=== PATIENT | female | born 2000 | race Caucasian/White ===

== ENCOUNTER 2023-12-26 08:43 | Outpatient (CLI) | payer BC, SELFPAY ==
[2023-12-26 19:08] LABS: Hematocrit 41.1 % (37.0-47.0); Mean Corpuscular HGB Conc 31.6 g/dl (32-36); Mean Corpuscular Hemoglobin 30.9 pg (26-34); Mean Corpuscular Volume 97.6 fl (80-100); Mean Platelet Volume 10.6 fl (7.4-10.4); Platelet Count Result 236 k/mm3 (150-375); Red Blood Count 4.21 M/mm3 (4.2-5.4); Red Cell Distribution Width 11.8 % (11.5-14.5); White Blood Count 5.5 K/mm3 (4.5-10.0)
[2023-12-26 19:32] LABS: Alanine Aminotransferase 17 U/L (6-35); Albumin Level 4.2 g/dL (3.5-5.1); Alkaline Phosphatase 55 U/L (38-126); Anion Gap 7 mmol/L (8-16); Aspartate Amino Transferase 44 U/L (14-36); Bilirubin,Total 0.7 mg/dL (0.2-1.3); Blood Urea Nitrogen 12 mg/dL (7-17); Calcium 9.2 mg/dL (8.4-10.2); Carbon Dioxide 27 mmol/L (22-30); Chloride 107 mmol/L (98-107); Cholesterol 173 mg/dL (0-200); Estimated Glomerular Filt Rate > 60; Glucose 79 mg/dL (65-110); HDL Direct 44 mg/dL; Potassium 4.1 mmol/L (3.4-5.0); Sodium 141 mmol/L (137-145); Triglycerides 52 mg/dL (<150)
[2023-12-26 19:43] LABS: LDL Cholesterol Direct 106 mg/dL
[2023-12-26 19:43] LABS: Vitamin D 25 Hydroxy 33.3 ng/mL
[2023-12-26 20:03] LABS: Thyroid Stimulating Hormone 0.466 uIU/mL (0.465-4.680)
[2023-12-26 20:36] LABS: Folic Acid 7.1 ng/mL (2.76->20)
[2023-12-26 21:21] LABS: Free T4 Free Thyroxine 1.18 ng/mL (0.78-2.19)
[2023-12-29 02:31] LABS: Thyroid Peroxidase Antibodies 2 IU/mL (<9)
== END 2023-12-26 08:44 | disposition home or self-care (01) ==
LOC: ANHBWCLAB 08:45
PROVIDERS: PCP Nurse Practitioner Adult Health; Visit Provider Nurse Practitioner Adult Health
DX: Z13.9 Encounter for screening, unspecified (principal); R53.83 Other fatigue
CPT/HCPCS: 36415; 80053; 80061; 82306; 82607; 82746; 84439; 84443; 85027; 86376

== ENCOUNTER 2024-09-15 09:30 | Emergency (ER) | payer BC, SELFPAY ==
[2024-09-15 09:46] VITALS: BP 101/72; PULSE 76; RESP 20; TEMP 37.6; O2SAT 98
--- NOTE | 2024-09-15 09:54 | ED.UPPEXIN ---
HPI - Extremity Injury (Upper) General Chief Complaint: Extremity Injury, Upper Stated Complaint: right arm pain from shoulder to elbow Source: patient Mode of arrival: ambulatory Limitations: no limitations History of Present Illness HPI narrative: 24 y/o female presented for c/o right upper arm pain for 2 days. pain is primarily to the biceps. She denies significant injury or overuse. She works at the [employer] which has led wrist. She denies deformity, Decreased range of motion, numbness, tingling, weakness or decreased order entry specialist strength. Took a dose of ibuprofen and applied Voltaren gel and massage without significant improvement. Related Data Allergies Allergy/AdvReac Type Severity Reaction Status Date / Time No Known Allergies Allergy Verified 09/15/24 10:01 Review of Systems Review of Systems: CONSTITUTIONAL: Denies body aches, fever, chills CARDIOVASCULAR: Denies chest pain, palpitations, or edema. RESPIRATORY: Denies cough or dyspnea. SKIN: Denies rash or wounds. MUSCULOSKELETAL: reports right upper arm pain NEUROLOGIC: Denies headache, numbness, tingling, or weakness. All systems reviewed & are unremarkable except as noted in HPI and below PMFSH Past Medical History Medical History Anxiety Chronic GERD Disorder of thyroid IBS (irritable bowel syndrome) Family History Family History Father Hypertension Depression COPD (chronic obstructive pulmonary disease) EtOH dependence Mother Depression Disorder of thyroid Sibling Depression Grandparent Diabetes mellitus Hypertension Heart disease Grandparent Depression Hypertension Social History Social History Smoking status: Current every day smoker (vaping) Tobacco type: e-cigarettes/vaping Alcohol use details: Wine once or twice a month Substance use: never Lack of Transportation: No Lack of Food: Never True Current Housing: I Have Housing Concerned About Future Housing: No Difficulty Paying Gas/Electric Bills: No Difficulty Paying for Meds: No Currently Unemployed: No Education: High School Diploma/GED Difficulty w/ Childcare or Family Care: No Living arrangements: alone Occupation/Education: occupation Additional occupation/education comments: [employer] Agree to blood products: Yes Comments At time of signature, I have reviewed and agree with nursing past medical, surgical, social and family history unless otherwise noted. Please see nursing chart for further information. There is no relevant family history pertinent to the presenting complaint Exam Narrative: GENERAL: Well-appearing CHEST: Speaks in full sentences. No respiratory distress. HEART: Regular rate and rhythm. Normal and equal peripheral pulses. EXTREMITIES: RUE has normal strength and sensation. normal full range of motion at shoulder and elbow but endorses some bicep pain with movement, worse with flexion of elbow. Bicep mildly tender with palpation. No swelling or ecchymosis, No open wounds, or obvious deformity; alignment normal, pulse palpable and equal bilaterally, skin warm, dry, pink. Capillary refill less than 3 seconds. SKIN: Warm, dry, no rash. NEURO: Alert and oriented x3. PSYCH: Normal mood and affect Course Course Emergency Course: Patient is aware of diagnosis, understands and agrees to treatment plan. Anticipatory guidance given. Patient agrees to follow-up as directed and is aware of reasons to seek care at the emergency department. Portions of this record may have been created with voice recognition software Level of Care: Express Care Visit Vital Signs Vital signs: Vital Signs Temperature 99.6 F 09/15/24 09:46 Pulse Rate 76 09/15/24 09:46 Respiratory Rate 20 09/15/24 09:46 Blood Pressure 101/72 09/15/24 09:46 Pulse
== END 2024-09-15 10:15 | disposition home or self-care (01) ==
PROVIDERS: Emergency Provider Nurse Practitioner Family; PCP Nurse Practitioner Adult Health
DX: S46.911A Strain of unspecified muscle, fascia and tendon at shoulder and upper arm level, right arm, initial encounter (principal); X58.XXXA Exposure to other specified factors, initial encounter; K21.9 Gastro-esophageal reflux disease without esophagitis; F17.290 Nicotine dependence, other tobacco product, uncomplicated
CPT/HCPCS: 99213; G0463

== ENCOUNTER 2025-06-09 10:29 | Outpatient (CLI) | payer BC, SELFPAY ==
--- NOTE | ~2025-06-09 | XR_ITS ---
Left foot Technique: AP, oblique, and lateral views were obtained. Clinical History: Injury Findings: No acute fracture or dislocation is seen. Osseous alignment is anatomic. Joint spaces are p reserved without erosive or degenerative change. Soft tissues are unremarkable. Impression: Unremarkable left foot radiographs. Reviewed, dictated and finalized at location . Impression: Unremarkable left foot radiographs.
--- OUTSIDE RECORDS SUMMARY | 2025-06-09 10:37 | XMS_ITS | Encounter Summary ---
Author Organization [facility] Health Address [address] [facility] [place] [address] Care Team Providers Care Senior Gamemaster Name Role Phone Moses Leary MD Primary Care Provider [phone] Moses Leary MD Unavailable Deedee Watkins MD Primary Care Provider [phone] Traci Salinas MD Unavailable [phone] Encounter Details Date Type Department Care Team (Late st Contact Info) Description 07/30/2017 [facility] Moses Leary MD [address] [facility] [address] [place] [id number] Social History Tobacco Use Types Packs/Day Years Used Date Smoking Tobacco: Never Alcohol Use Standard Drinks/Week Comments No 0 (1 standard drink = 0.6 oz pur e alcohol) Comments No Sex and Gender Information Value Date Recorded Sex Assigned at Not on file 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 Gender Identity Female 02/06/2024 1:51 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 Sexual Orientation Not on file documented as of this encounter Plan of Treatment Not on file documented as of this encounter Visit Diagnoses Not on filedocumented in this encounter Additional Health Concerns Infection Onset Date Last Indicated Resolved Time CDIFF Under Investigation 06/28/2023 06/28/2023 documented as of this encounter Care Teams Senior Gamemaster Relationship Specialty Start Date End Date Moses Leary MD PCP - General Family Medicine 06/07/17 05/08/21 Moses Leary MD [address] [place] [id number] PCP - Attributed-Exclusive Choice 12/04/18 12/01/19 Deedee Watkins MD [address] [place] [phone] PCP - General Family Medicine 05/09/21 Traci Salinas MD [address] [place] [phone] Endocrinology 11/06/21 documented as of this encounter
--- OUTSIDE RECORDS SUMMARY | 2025-06-09 10:37 | XMS_ITS | Clinical Summary ---
Author Organization [facility] [employer] Address [address] [place] [address] Care Team Providers Care Clinical Trials Specialist Name Role Phone Deedee Watkins MD Primary Care Provider [phone] Traci Salinas MD Unavailable [phone] Source Comments [facility],non-owned Affiliates and Associated Physician Practices is amultiple site organization consisting of ambulatory clinics and hospital sitesin [place], [place], [place] and [place]. This disclosure is being madepursuant to the Care Everywhere program and may not contain all information available regarding this patient. Last updated 18.[facility] [employer] Allergies No known active allergies Medications * Be aware that medications may not be up to date on this document. Alwaysverify current medications with the patient. Omeprazole (PRILOSEC PO) Take 20 mg by mouth once daily as needed Active sod picosulfate-mag ox-anhydrous citric acid (Clenpiq) 10-3.5-12 MG-GM -GM/175ML SOLN 175 ml solutionIndicat ions:Diarrhea, unspecified type Take 175 mL by mouth as directed Take 1, 175 mL bottle on day 1 and take 1, 175 mL bottle on day 2 per written colonoscopy instructions 350 mL 3 Active Additional Information Patient not taking.Reported on 02/05/2024 medroxyPROGESTE Sae (Depo-Provera) 150 MG/ML vial INJECT 150 (ONE HUNDRED FIFTY) MG INTO MUSCLE ONCE FOR 1 DOSE 1 mL 3 4 Active Active Problems No known active problems Immunizations Immunization Administration Dates Next Due INFLUENZA VACCINE, TRIV. (AF LURIA, FLUZONE TRIVALENT; 6MO+) (IIV3) 10/27/2014,08/20/2013,09/05/2012 DTaP VACCINE IM (6wk-6yrs) 05/09/2006,,2001,07/22,2001 HEP A PEDS 2 DOSE 07/21/2012 HEP B VACCINE, PED/ADOL 2001,2001, HIB-PRP-T 4 DOSE 10/13/2002, 1,2001,05/16 Human Papilloma Virus Danitza valent Vaccine 11/05/2016,06/27/2016,04/18/2016 INFLUENZA VACCINE 08/02/2014,08/20/2013 INFLUENZA VACCINE, QUADR. (F LUZONE; FLULAVAL; FLUARIX; AFLURIA QUADRIVALENT; 6MO+), 0.5 ML (IIV4) 11/20/2022,08/26/2018 MENINGOCOCAL MENINGITIS 07/21/2006 MENINGOCOCCAL ACWY (MCV4P) VAC IM 07/30/2017 MENINGOCOCCAL ACWY MENVEO 07/21/2012 MMR 05/06/2006,03/27/2002 PNEUMOCOCCAL PCV7 CONJ, PEDS 2001,05/16/20 01 POLIO IPV 05/09/2006, 2,2001,05/16 TDAP (7yrs+) 07/21/2012 VARICELLA 07/21/2012,03/27/2002 Family History Medical History Relation Name Comments Seizures Mother Diabetes Paternal Grandfather Heart Failure Paternal Grandfather Cancer Paternal Grandmother breast Asthma Sister Relation Name Status Comments Father Alive Maternal Grandfather Maternal Grandmother Mother Alive Paternal Grandfather Paternal Grandmother Sister Social History Tobacco Use Types Packs/Day Years Used Date Smoking Tobacco: Never Smokeless Tobacco: Never Tobacco Cessation:Counseling Given: Not Answered Alcohol Use Standard Drinks/Week Comments Yes 0 (1 standard drink = 0.6 oz pur e alcohol) Occ PHQ-2 Answer Date Recorded PHQ2 TOTAL SCORE 0 06/28/2023 Comments No Sex and Gender Information Value Date Recorded Sex Assigned at Not on file Legal Sex Female 9:00 PM SECURITY SME Gender Identity Female 02/06/2024 1:51 PM SECURITY SME Sexual Orientation Not on file Last Filed Vital Signs Vital Sign Reading Time Taken Comments Blood Pressure 106/73 02/05/2024 3:35 PM SECURITY SME Pulse 84 02/05/2024 3:35 PM SECURITY SME Temperature 36.5 C (97.7 F) 11/06/2021 2:00 PM SECURITY SME Respiratory Rate 20 08/25/2021 10:14 AM CDT Oxygen Saturation 100% 07/08/2023 1:58 PM CDT Inhaled Oxygen Concentration - - Weight 62.6 kg (138 lb) 02/05/2024 3:35 PM SECURITY SME Height 160 cm (5' 3) 02/05/2024 3:35 PM SECURITY SME Body Mass Index 24.45 02/05/2024 3:35 PM SECURITY SME Plan of Treatment Health Maintenance Due Date Last Done Comments DTAP/TDAP/TD VACCINES (7 - Td or Tdap) 07/21/2022 07/21/2012, 05/09/2006, 10/13/2002, Additional history exists COVID-19 VACCINE ( season) 2024 03/23/2021, 03/02/2021 DEPRESSION SCREENING 12/02/2024 06/28/2023 CHLAMYDIA/GONORRHEA SCREENING 02/04/2025 02/05/2024, 08/01/2021, 07/05/2020 INFLUENZA VACCINE (#1) 2025 , 08/26/2018, 10/27/2014, Additional history exists PAP SMEAR 11/20/2025 11/20/2022 ZOSTER VACCINE (1 of 2) 2051 PNEUMOCOCCAL VACCINE Aged Out 2001, 05/16/20 No longer eligible based on patient's age to complete this topic HEPATITIS B VACCINE Completed 2001, 2001, 2001 HIB VACCINE Completed 10/13/2002, 09/01, 2001, Additional history exists HPV VACCINE Discontinued 11/05/2016, 06/02, 04/18/2016 MENINGOCOCCAL GROUPS A/C/Y/W VACCINE Completed 07/30/2017, 07/21/2012, 07/21/2006 HEPATITIS C SCREENING Discontinued HIV SCREENING Discontinued MENINGOCOCCAL (Group B) VACCINE SHARED DECISION-MAKING Aged Out No longer eligible based on patient's age to complete this topic Procedures Procedure Name Priority Date/Time Associated Diagnosis Comments CHLAMYDIA + GC + TRICH DNA AMPL Routine 02/05/2024 4:15 PM SECURITY SME Screen for STD (sexually transmitted disease) PAP IG LB CT+NG+TV RFLX HPV ASCU Routine 11/20/2022 4:44 PM SECURITY SME Well woman exam from Last 3 Months or Most Recently Relevant to Health Maintenance Results * CHLAMYDIA + GC + TRICH DNA AMPL (02/05/2024 4:15 PM SECURITY SME) Chlamydia trachomatis EMANUEL Negative Negative [facility] ACCOUNT BILL GC DNA Probe Negative Negative [facility] ACCOUNT BILL Trichomonas vaginalis by EMANUEL Negative Negative [facility] ACCOUNT BILL Microbiology ENTIRE ENDOCERVIX / Unknown 02/05/2024 4:15 PM SECURITY SME 02/06/2024 Narrative Resulting Agency Comment Lab Testing performed at: [employer] [facility] [id number] Lisa Peterson MD LAB - MICROBIOLOGY ORDERABL ES Final Result [facility] ACCOUNT BILL [address] [place] [address] * PAP IG LB CT+NG+TV RFLX HPV ASCU (11/20/2022 4:44 PM SECURITY SME) Diagnosis [facility] ACCOUNT BILL Comment:NEGATIVE FOR INTRAEP ITHELIAL LESION OR MALIGNANCY. Specimen Adequacy [facility] ACCOUNT BILL Comment:Satisfactory for valeria luation. No endocervical component is identified. Clinician Provided ICD10 [facility] ACCOUNT BILL Comment: Z01.419 Z30.42 Z23 Performed by [facility] ACCOUNT BILL Comment:Kieran Saldivar totechnologist (ASCP) Comment . [facility] ACCOUNT BILL Note [facility] ACCOUNT BILL Comment: The Pap smear is a screening test designed to aid in the detection of premalignant and malignant conditions of the uterine cervix. It is not a diagnostic procedure and should not be used as the sole means of detecting cervical cancer. Both false-positive and false-negative reports do occur. . IGLBP CPT Code Automation [facility] ACCOUNT BILL Comment: This liquid based ThinPrep(R) pap test was screened with the use of an image guided system. Note [facility] ACCOUNT BILL Comment: The HPV DNA reflex criteria were not met with this specimen result therefore, no HPV testing was performed. . Chlamydia trachomatis EMANUEL Negative Negative [facility] ACCOUNT BILL GC EMANUEL Negative Negative [facility] ACCOUNT BILL Trichomonas vaginalis by EMANUEL Negative Negative [facility] ACCOUNT BILL PART OF UTERINE CERVIX / Unknown 11/20/2022 4:44 PM SECURITY SME 11/21/2022 Narrative [facility] ACCOUNT BILL - 12/03/2022 1:07 PM SECURITY SME No. of containers..01 ThinPrep Vial Resulting Agency Comment Lab Testing performed at: [address] [id number] Lisa Peterson MD LAB - PATHOLOGY/CYTOLOGY OR DERABLES Final Result [facility] ACCOUNT BILL [address] [place] [address] from Last 3 Months or Most Recently Relevant to Health Maintenance Additional Health Concerns Infection Onset Date Last Indicated CDIFF Under Investigation 06/28/20232022 Insurance ANTHEM [facility] [employer] Care Teams Clinical Trials Specialist Relationship Specialty Start Date End Date Deedee Watkins MD [address] [place] [phone] PCP - General Family Medicine 05/09/21 Traci Salinas MD [address] [place] [phone] Endocrinology 11/06/21
== END 2025-06-09 10:30 | disposition home or self-care (01) ==
LOC: ANHBWCIMG 10:31
PROVIDERS: PCP Nurse Practitioner Adult Health; Visit Provider Nurse Practitioner Adult Health
DX: S99.929A Unspecified injury of unspecified foot, initial encounter (principal); X58.XXXA Exposure to other specified factors, initial encounter
CPT/HCPCS: 73630